=== PATIENT | female | born 1970 | race Caucasian/White ===

== ENCOUNTER 2018-06-04 08:01 | Day surgery (SDC) | payer MEDICAID ==
[~2018-06-04 08:01] MED LIST: ACETAMINOPHEN 1,000 MG/100 ML BTL IV ONE
[2018-06-04] MEDS ORDERED: SEVOFLURANE 250 ML INH ONE (08:02)
[2018-06-04] MEDS ORDERED: KETOROLAC 30 MG/ML VIAL IVP ONE (08:02)
[2018-06-04] MEDS ORDERED: ONDANSETRON HCL IV 4 MG/2 ML VIAL IVP ONE (08:02)
[2018-06-04] MEDS ORDERED: PROPOFOL 10 MG/ML VIAL IV ONE (08:02)
[2018-06-04] MEDS ORDERED: MORPHINE SULFATE 4MG/ML PREFILLED SYRINGE IVP ONE (08:02)
[2018-06-04] MEDS ORDERED: LIDOCAINE 2% MDV (20MG/ML) 20ML VIAL IV ONE (08:02)
[2018-06-04] MEDS ORDERED: BUPIVACAINE 0.25% W/EPI MPF 30ML VIAL IVP ONE (08:02)
[2018-06-04] MEDS ORDERED: FENTANYL PF 100MCG/2ML VIAL IV ONE (08:02)
[2018-06-04] MEDS ORDERED: HYDROCODONE/APAP 5/325MG TABLET PO ONE (08:02)
[2018-06-04] MEDS ORDERED: MIDAZOLAM HCL 2MG/2ML VIAL IV ONE (08:02)
--- NOTE | 2018-06-06 21:47 | Operative Note ---
DATE: 06/04/2018 PREOPERATIVE DIAGNOSES: 1. TORN MEDAL MENISCUS OF THE RIGHT KNEE. 2. CHONDROMALACIA OF THE RIGHT KNEE. POSTOPERATIVE DIAGNOSES: 1. TORN MEDIAL MENISCUS OF THE RIGHT KNEE. 2. CHONDROMALACIA PATELLA, TROCHLEA, AND MEDIAL FEMORAL CONDYLE RIGHT KNEE. 3. CHONDROCALCINOSIS RIGHT KNEE. OPERATIVE PROCEDURE: 1. ARTHROSCOPIC PARTIAL MEDIAL MENISCECTOMY RIGHT KNEE. 2. ARTHROSCOPIC CHONDROPLASTY OF THE PATELLA AND TROCHLEA RIGHT KNEE. STAFF SURGEON: KAVEH COSTELLO M.D. REFERRING PHYSICIAN: PENELOPE CURRY NP DESCRIPTION: This 48-year-old female was taken to the Operating Room and placed in the supine position on the operating room table, where general anesthesia was induced. The right lower extremity was elevated. It was exsanguinated and the tourniquet inflated to 300 mmHg. The right knee was placed in an arthroscopic knee orozco, prepped with Hibiclens, and draped in the usual sterile fashion. An inferior lateral portal was established for the 4 mm arthroscope. An initial evaluation of the joint demonstrated normal appearance of the suprapatellar pouch except that there were loose cartilaginous bodies floating within the suprapatellar pouch and these were suctioned from the joint. There was grade 3 chondromalacia of the patella and grade 3 chondromalacia of the trochlea. A chondroplasty was performed of both to stabilize the articular cartilage there. The medial and lateral gutters were examined and found to be normal. The medial compartment was entered. Loose articular cartilage fragments were present in the medial compartment as well and these were also suctioned from the joint. The medial femoral condyle demonstrated grade 2 chondromalacia but very mild degenerative changes were present there and it was not further disturbed. The medial meniscus demonstrated a complex tear with both radial flap and horizontal cleavage components. The majority of the meniscus was flipped underneath itself and once we extricated that from the folded-under position, this was a relatively large flap of meniscus that was torn. We then utilized he rotating shaver and basket forceps to resect unstable fragments of the meniscus back to the apex of the tear, which was approximately the 12 o' clock position, leaving approximately 2 to 3 of meniscal ring remaining. This was then re-probed and confirmed to be stable after resection of unstable fragments. The intercondylar notch was subsequently examined and found to be normal. The lateral compartment was entered and the lateral meniscus and articular cartilage of the lateral compartment was normal. The joint was then copiously irrigated and suctioned. The instruments were removed, the portals infiltrated with 0.25% Marcaine with Epinephrine. Sutures were placed at the portals and a sterile dressing was applied and the patient taken to the Recovery Room in satisfactory condition. GROSS PATHOLOGY: This patient demonstrated a complex tear of the medial meniscus as described. Loose cartilaginous fragments were present throughout the joint as described. There was also evidence of chondrocalcinosis on the medial meniscus. When we removed the torn portion, we could see small fragments of that but I did not see it in any other location. The patient demonstrated grade 3 chondromalacia of the trochlea and patella and mild grade 2 chondromalacia of the weightbearing surface of the medial femoral condyle. JOB NUMBER: [id number] MTDD
== END 2018-06-04 11:30 | disposition home or self-care (01) ==
LOC: SUR 08:01
PROVIDERS: ATTEND Orthopaedic Surgery
DX: S83.231A Complex tear of medial meniscus, current injury, right knee, initial encounter (principal); M22.41 Chondromalacia patellae, right knee; M11.261 Other chondrocalcinosis, right knee
CPT/HCPCS: 29881; 01400; J1885; J2405; J3010; J2274

== ENCOUNTER 2019-04-26 14:20 | Emergency (ER) | payer SELFPAY ==
--- NOTE | 2019-04-26 14:29 | Emergency Department Record ---
History of Present Illness - General Chief complaint: Pain Stated complaint: RT KNEE PAIN/TINGLING FROM KNEE DOWN TO TOES Time Seen by Provider: 04/26/19 14:22 Source: Patient Mode of Arrival: Ambulatory Limitations: No limitations - History of Present Illness Initial comments: 49 yo female presents with right knee pain radiating down the leg. She has had pain for a year. She had meniscus surgery in 2018. The knee hurts in the front and the back. The pain is sharp. She wears a brace from Dr Bonner without improvement. She had an XR 04/15/19 No acute fracture, minor tricompartmental degenerative changes. Borderline suprapetellar effusion. No chest pain, no cough, no shortness of breath. MD Complaint: Extremity pain, Joint pain -: Week(s) (1 year of knee pain) Location: Right History of Same: Yes -: Yes Arthralgia, Yes Myalgia Radiation: Distal Quality: Aching Consistency: Constant Improves with: Elevation, Immobilization Worsens with: Palpation, Weight bearing Associated Symptoms: Denies other symptoms - Related Data Previous Rx's Medication Instructions Recorded Hydrocodone/APAP 7.5/325Mg [[place] 1 each PO Q6H #12 tab 04/26/19 7.5MG/325Mg] Allergies Allergy/AdvReac Type Severity Reaction Status Date / Time No Known Allergies Allergy Unverified 11/12/18 12:40 Review of Systems Constitutional: Denies: Chills, Fever, Malaise, Weakness Eyes: Denies: Eye discharge ENT: Denies: Congestion, Throat pain Respiratory: Denies: Cough, Dyspnea, Hemoptysis, Stridor, Wheezes Cardiovascular: Denies: Chest pain, Palpitations, Syncope Endocrine: Denies: Fatigue Gastrointestinal: Denies: Abdominal pain, Diarrhea, Nausea, Vomiting Genitourinary: Denies: Dysuria Musculoskeletal: Reports: Arthralgia, Joint swelling, Myalgia Skin: Denies: Bruising, Change in color, Rash Neurological: Denies: Headache, Numbness, Weakness Psychiatric: Denies: Anxiety Hematological/Lymphatic: Denies: Easy bleeding, Easy bruising Past Medical History - SOCIAL HISTORY Smoking Status: Never smoker - RESPIRATORY Hx Respiratory Disorders: No - CARDIOVASCULAR Hx Cardio Disorders: Yes Hx Edema: Yes Comment:: D/T knee pain - NEURO Hx Neuro Disorders: Yes Hx Headaches: Yes (when she doesnt drink caffeine) - GI Hx GI Disorders: No - Hx Genitourinary Disorders: No Comment:: S/P TL - ENDOCRINE Hx Endocrine Disorders: No - MUSCULOSKELETAL Hx Musculoskeletal Disorders: Yes Hx Back Injury: Yes (injury cervical spine 2012 had sx) - PSYCH Hx Psych Problems: No - HEMATOLOGY/ONCOLOGY Hx Hematology/Oncology Disorders: No Family Medical History Family Hx Comment (NOT TO BE USED IN PLACE OF ITEMS BELOW): dads hx unknown Hx Cancer: Mother Physical Exam - General General Appearance: Alert, Oriented x3, Cooperative, No acute distress Limitations: No limitations - Head Head exam: Atraumatic, Normal inspection - Eye Eye exam: Normal appearance. negative: Conjunctival injection - ENT ENT exam: Normal exam Ear exam: Normal external inspection Nasal Exam: Normal inspection Mouth exam: Normal external inspection - Neck Neck exam: Normal inspection - Respiratory Respiratory exam: Normal lung sounds bilaterally. negative: Respiratory distress - Cardiovascular Peripheral Pulses: 2+: Dorsalis Pedis (R) (Warm foot, very good perfusion) - Rectal Rectal exam: Deferred - exam: Deferred - Extremities Extremities exam: Calf tenderness, Tenderness, Other (Normal size calf but tender, tender popliteal, varicose veins, ). negative: Normal inspection, Full ROM, Pedal edema - Neurological Neurological exam: Alert, Oriented X3 - Psychiatric Psychiatric exam: Normal affect, Normal mood - Skin Skin exam: Dry, Intact, Normal color, Warm Course - Reevaluation(s) Reevaluation #1: 04/26/19 14:32 Vitals reviewed No acute changes Examination tender anterior near patella, posterior, normal inspection, not warm or red, scattered leg varicosities but soft calf. 04/26/19 16:38 Negative DVT. Fluid collection. popliteal Cyst. Disposition Disposition: Discharge Clinical Impression: Knee pain, Popliteal cyst Disposition: Home, Self-Care Condition: (1) Good Instructions: Arthralgia (ED), Swollen Joint (ED) Additional Instructions: Call your orthopedic doctor for the next available follow up appointment Review this ER visit and the tests performed with your family doctor Return to the ER for a recheck if worse, any new concerns or questions Take the prescriptions provided as directed Prescriptions: Hydrocodone/APAP 7.5/325Mg [[place] 7.5MG/325Mg] 1 each PO Q6H #12 tab Forms: Patient Portal Access Time of Disposition: 16:40 Quality - Quality Measures Quality Measures: N/A - Blood Pressure Screening Does Patient Have Any of the Following: No Blood Pressure Classification: Hypertensive Reading Systolic Measurement: 146 Diastolic Measurement: 99 Screening for High Blood Pressure: < Pre-Hypertensive BP, F/U Documented > [G8950] Pre-Hypertensive Follow-up Interventions: Referral to alternative/primary care provider.
--- NOTE | 2019-04-29 07:53 | US VENOUS DOPPLER REPORT ---
EXAM: RIGHT LOWER EXTREMITY VENOUS DOPPLER ULTRASOUND HISTORY: PAIN, NUMBNESS AND TINGLING FROM KNEE TO TOES ON RIGHT SINCE MENISCAL TEAR ONE YEAR AGO. TECHNIQUE: Quarles scale, color Doppler and Duplex Doppler evaluation of the deep venous structures of the right lower extremity were performed from the level of the external iliac vein to the calf veins. Imaging of the left external iliac, common femoral and greater saphenous veins are also performed. Comparison: Radiographic examination of the right knee dated 04/15/19. FINDINGS: On the right, the external iliac, common femoral, deep femoral, greater saphenous, all levels of the superficial femoral, and popliteal veins are anechoic and completely compressible. Normal venous Doppler waveforms are noted at all levels and these waveforms are augmentable. The peroneal, posterior tibial and anterior tibial veins appear patent with augmentable waveforms. No evidence of DVT within the external iliac, common femoral, nor greater saphenous veins on the left. IMPRESSION: 1. NO EVIDENCE OF DEEP VENOUS THROMBOSIS WITHIN THE RIGHT LOWER EXTREMITY. 2. NOT MENTIONED ABOVE IS ABNORMAL FLUID IN THE POPLITEAL REGION BOTH MEDIALLY AND LATERALLY. THE LATERAL COMPONENT MEASURES 1.3 X 2.4 CM AND THE MEDIAL COMPONENT MEASURES 1.6 X 3.3 X 2.7 CM. JOB NUMBER: [id number] MTDD
== END 2019-04-26 17:15 | disposition home or self-care (01) ==
LOC: ER 14:20
DX: M71.21 Synovial cyst of popliteal space [Baker], right knee (principal); M25.561 Pain in right knee; M79.661 Pain in right lower leg
CPT/HCPCS: 99283